=== PATIENT | female | born 1960 | race American Indian/Alaskan Native ===

== ENCOUNTER 2019-01-20 11:57 | Emergency (ER) | payer MEDICARE ==
[2019-01-20 12:07] VITALS: BP 112/50
[2019-01-20] MEDS ORDERED: BOOSTRIX IM ONE (12:07)
--- NOTE | 2019-01-20 12:07 | Emergency Department Report ---
Chief Complaint: Extremity Injury, Upper Stated Complaint: RT HAND CUT/PAIN Time Seen by Provider: 01/20/19 12:05 - HPI History of Present Illness: cc lac hand and hand pain p slamming in car door pmh htn chronic pain 12/13 thyroidectomy rx lisinopril occ etoh no cig no drugs post menopausal needs tdap mse completed MSE screening note: Focused history and physical exam performed. Due to findings the following was ordered: ED Disposition for MSE Condition: Stable
--- NOTE | 2019-01-20 12:51 | Emergency Department Report ---
ED Upper Extremity Inj HPI - General Chief Complaint: Extremity Injury, Upper Stated Complaint: RT HAND CUT/PAIN Time Seen by Provider: 01/20/19 12:05 Source: patient Mode of arrival: Ambulatory Limitations: No Limitations - History of Present Illness Initial Comments: pt slammed hand in car trunk this am small abrasion thumb and 3rd finger needs tdap vss Complaint: Injury to:: right -: Sudden Other Extremity Injury: Hand: Right Other Injuries: none Handedness: right Place: home Improves With: none Worsens With: none Context: direct blow Associated Symptoms: denies other symptoms - Related Data Previous Rx's Medication Instructions Recorded Last Taken Type Naproxen [Naprosyn] 500 mg PO BID PRN #20 tablet 01/20/19 Unknown Rx Allergies Allergy/AdvReac Type Severity Reaction Status Date / Time gabapentin Allergy Unknown Verified 01/20/19 12:05 ED Review of Systems ROS: Stated complaint: RT HAND CUT/PAIN Other details as noted in HPI Comment: All other systems reviewed and negative Constitutional: denies: chills ENT: denies: as per HPI, ear pain Respiratory: denies: cough Cardiovascular: denies: palpitations Endocrine: denies: flushing Gastrointestinal: denies: nausea Musculoskeletal: as per HPI Skin: denies: rash Neurological: denies: headache Psychiatric: denies: anxiety Hematological/Lymphatic: denies: easy bleeding ED Past Medical Hx - Past Medical History Previous Medical History?: Yes Hx Hypertension: Yes Additional medical history: chronic pain - Surgical History Past Surgical History?: Yes Additional Surgical History: hysterectomy, thyriodectomy - Family History Family history: no significant - Social History Smoking Status: Never Smoker Substance Use Type: Alcohol - Medications Home Medications: Home Medications Medication Instructions Recorded Confirmed Last Taken Type Naproxen [Naprosyn] 500 mg PO BID PRN #20 tablet 01/20/19 Unknown Rx ED Physical Exam - General Limitations: No Limitations General appearance: alert - Head Head exam: Present: atraumatic, normocephalic - Eye Eye exam: Present: normal appearance, PERRL - ENT ENT exam: Present: mucous membranes moist - Neck Neck exam: Present: normal inspection, full ROM - Respiratory Respiratory exam: Present: normal lung sounds bilaterally - Cardiovascular Cardiovascular Exam: Present: regular rate - GI/Abdominal GI/Abdominal exam: Present: soft, normal bowel sounds - Rectal Rectal exam: Present: deferred - Extremities Exam Extremities exam: Present: normal inspection, full ROM - Expanded Upper Extremity Exam Right Hand Wrist exam: Present: normal inspection, full ROM, abrasion. Absent: tenderness, swelling, laceration, ecchymosis, deformity, crepidus, dislocation, erythema, amputation, nail avulsion Neuro motor exam: Present: wrist extension intact Neurosensory exam: Present: radial nerve intact, ulnar nerve intact, median nerve intact Vascular: Present: normal capillary refill, radial pulse, brachial pulse, ulnar pulse ED Course Vital Signs 01/20/19 12:06 Temperature 98.5 F Pulse Rate 90 Respiratory 18 Rate Blood Pressure 112/50 O2 Sat by Pulse 95 Oximetry - Reevaluation(s) Reevaluation #1: 01/20/19 12:50 no blood thinners ED Medical Decision Making - Radiology Data Radiology results: report reviewed, image reviewed - Medical Decision Making xray noted tdap given neuro vasc intact wound care provided dc home with dc poc Vital Signs 01/20/19 12:06 Temperature 98.5 F Pulse Rate 90 Respiratory 18 Rate Blood Pressure 112/50 O2 Sat by Pulse 95 Oximetry Critical care attestation.: If time is entered above; I have spent that time in minutes in the direct care of this critically ill patient, excluding procedure time. ED Disposition Clinical Impression: Hand contusion, Hand abrasion Disposition: DC-01 TO HOME OR SELFCARE Is pt being admited?: No Does the pt Need Aspirin: No Condition: Stable Instructions: Contusion in Adults (ED), Abrasion (ED) Additional Instructions: ICE REST ELEVATE OTC TYLENOL FOR PAIN NAPROSYN ORDERED TODAY TAKE WITH FOOD DIET TOLERATED ACTIVITY TOLERATED FOLLOW UP PCP IF PERSISTS Prescriptions: Naproxen [Naprosyn] 500 mg PO BID PRN #20 tablet PRN Reason: Pain Referrals: [facility] [Outside] - 3-5 Days Time of Disposition: 12:58
--- NOTE | 2019-01-20 13:08 | XRay Report ---
PROCEDURE: XR HAND 3+V RT TECHNIQUE: Right hand, 3 views HISTORY: pain hand p slamming in car door COMPARISONS: None available FINDINGS: No acute fracture or dislocation is seen. No focal osseous lesions. IMPRESSION: No acute fracture or dislocation is seen. This document is electronically signed by Claudia Perez MD., January 20 2019 01:06:55 PM ET
== END 2019-01-20 13:18 | disposition home or self-care (01) ==
LOC: ED 11:57
DX: S60.221A Contusion of right hand, initial encounter (principal); S60.311A Abrasion of right thumb, initial encounter; S60.412A Abrasion of right middle finger, initial encounter; W22.8XXA Striking against or struck by other objects, initial encounter; Y93.89 Activity, other specified; Y92.89 Other specified places as the place of occurrence of the external cause; Y99.8 Other external cause status
CPT/HCPCS: 90471; 90715

== ENCOUNTER 2019-09-13 16:29 | Emergency (ER) | payer MEDICARE ==
[2019-09-13 18:11] VITALS: BP 146/77
--- NOTE | 2019-09-13 18:21 | Emergency Department Report ---
ED General Adult HPI - General Chief complaint: Medical Clearance Stated complaint: GENERAL ILLNESS Time Seen by Provider: 09/13/19 18:10 Source: patient Mode of arrival: Ambulatory Limitations: No Limitations - History of Present Illness Initial comments: Patient is a 59-year-old female presents emergency room with complaints of right upper dental pain that began 3 days ago. She states that she was eating something and cracked her right upper tooth. She states it has been a while since she has seen a dentist. Patient denies any fever or facial swelling. She states that she is also presenting to the emergency room with complaints of URI symptoms for a week. She states she has associated cough, clear mucus, chills. She denies any fever, shortness of breath, chest pain, productive cough, leg swelling, any other symptoms. She states her only past medical history of hypertension. She denies any allergies medications. - Related Data Previous Rx's Medication Instructions Recorded Last Taken Type Naproxen [Naprosyn] 500 mg PO BID PRN #20 tablet 01/20/19 Unknown Rx Acetaminophen/Codeine [Tylenol 1 tab PO Q6H PRN #7 tab 09/13/19 Unknown Rx /Codeine # 3 tab] Cetirizine HCl [Zyrtec 10mg tab] 10 mg PO DAILY #14 tablet 09/13/19 Unknown Rx Fluticasone [Flonase] 1 spray NS QDAY #1 bottle 09/13/19 Unknown Rx Ibuprofen [Motrin 600 MG tab] 600 mg PO Q8H PRN #14 tablet 09/13/19 Unknown Rx Penicillin Vk [Veetids TAB] 500 mg PO QID 7 Days #56 tablet 09/13/19 Unknown Rx guaiFENesin ER [Mucinex ER] 600 mg PO Q12H #14 tablet.er 09/13/19 Unknown Rx Allergies Allergy/AdvReac Type Severity Reaction Status Date / Time gabapentin Allergy Unknown Verified 01/20/19 12:05 ED Review of Systems ROS: Stated complaint: GENERAL ILLNESS Other details as noted in HPI Comment: All other systems reviewed and negative ED Past Medical Hx - Past Medical History Previous Medical History?: Yes Hx Hypertension: Yes Additional medical history: chronic pain - Surgical History Past Surgical History?: Yes Additional Surgical History: hysterectomy, thyriodectomy - Social History Smoking Status: Never Smoker Substance Use Type: Alcohol - Medications Home Medications: Home Medications Medication Instructions Recorded Confirmed Last Taken Type Naproxen [Naprosyn] 500 mg PO BID PRN #20 tablet 01/20/19 Unknown Rx Acetaminophen/Codeine [Tylenol 1 tab PO Q6H PRN #7 tab 09/13/19 Unknown Rx /Codeine # 3 tab] Cetirizine HCl [Zyrtec 10mg tab] 10 mg PO DAILY #14 tablet 09/13/19 Unknown Rx Fluticasone [Flonase] 1 spray NS QDAY #1 bottle 09/13/19 Unknown Rx Ibuprofen [Motrin 600 MG tab] 600 mg PO Q8H PRN #14 tablet 09/13/19 Unknown Rx Penicillin Vk [Veetids TAB] 500 mg PO QID 7 Days #56 tablet 09/13/19 Unknown Rx guaiFENesin ER [Mucinex ER] 600 mg PO Q12H #14 tablet.er 09/13/19 Unknown Rx ED Physical Exam - General Limitations: No Limitations General appearance: alert, in no apparent distress - Head Head exam: Present: atraumatic, normocephalic - Eye Eye exam: Present: normal appearance - ENT ENT exam: Present: normal orophraynx, mucous membranes moist, TM's normal bilaterally, normal external ear exam, other (right upper tooth is cracked in half no surrounding edema, erythema, induration, uvula is midline, no uvular edema) - Respiratory Respiratory exam: Present: normal lung sounds bilaterally. Absent: respiratory distress, wheezes, rales, rhonchi, stridor, chest wall tenderness, accessory muscle use, decreased breath sounds, prolonged expiratory - Cardiovascular Cardiovascular Exam: Present: regular rate, normal rhythm, normal heart sounds. Absent: systolic murmur, diastolic murmur, rubs, gallop - Neurological Exam Neurological exam: Present: alert, oriented X3 - Psychiatric Psychiatric exam: Present: normal affect, normal mood - Skin Skin exam: Present: warm, dry, intact ED Course Vital Signs 09/13/19 18:07 Temperature 98.5 F Pulse Rate 86 Respiratory 16 Rate Blood Pressure 146/77 [Left] O2 Sat by Pulse 98 Oximetry ED Medical Decision Making - Medical Decision Making Patient is a 59-year-old female presents emergency room with complaints of right upper dental pain that began 3 days ago. She states that she was eating something and cracked her right upper tooth. She states it has been a while since she has seen a dentist. Patient denies any fever or facial swelling. She states that she is also presenting to the emergency room with complaints of URI symptoms for a week. She states she has associated cough, clear mucus, chills. She denies any fever, shortness of breath, chest pain, productive cough, leg swelling, any other symptoms. She states her only past medical history of hypertension. She denies any allergies medications. VSS. no tachycardia, no fever. on exam: right upper tooth is cracked in half no surrounding edema, erythema, induration, uvula is midline, no uvular edema, lungs are clear bilaterally with no wheezing, rales, rhonchi. She has no clinical signs and symptoms of pneumonia. Patient's examination consistent with viral URI. Patient placed on antibiotics prophylactically for cracked tooth to prevention dental abscess. Discussed supportive care and symptomatic treatment with patient for viral URI. advised pt to please take medication as prescribed. Do not drive or operate heavy machinery while taking pain medication. May use warm saltwater gargles, drink warm tea, eat warm soup broth, get plenty of rest. Increase your fluid intake over the next several days. Follow-up with a dentist and a primary care doctor in the next 2-3 days. Return to the emergency room for any new or worsening symptoms. - Differential Diagnosis URI, PNA, allergies, viral syndrome, sinusitis Critical care attestation.: If time is entered above; I have spent that time in minutes in the direct care of this critically ill patient, excluding procedure time. ED Disposition Clinical Impression: Cracked tooth Upper respiratory infection Qualifiers: URI type: unspecified URI Qualified Code(s): J06.9 - Acute upper respiratory infection, unspecified Disposition: DC-01 TO HOME OR SELFCARE Is pt being admited?: No Does the pt Need Aspirin: No Condition: Stable Instructions: Dental Caries (ED), Upper Respiratory Infection (ED), Toothache (ED) Additional Instructions: Please take medication as prescribed. Do not drive or operate heavy machinery while taking pain medication. May use warm saltwater gargles, drink warm tea, eat warm soup broth, get plenty of rest. Increase your fluid intake over the next several days. Follow-up with a dentist and a primary care doctor in the next 2-3 days. Return to the emergency room for any new or worsening symptoms. Prescriptions: Fluticasone [Flonase] 1 spray NS QDAY #1 bottle Ibuprofen [Motrin 600 MG tab] 600 mg PO Q8H PRN #14 tablet PRN Reason: Pain guaiFENesin ER [Mucinex ER] 600 mg PO Q12H #14 tablet.er Acetaminophen/Codeine [Tylenol /Codeine # 3 tab] 1 tab PO Q6H PRN #7 tab PRN Reason: Pain , Severe (7-10) Penicillin Vk [Veetids TAB] 500 mg PO QID 7 Days #56 tablet Cetirizine HCl [Zyrtec 10mg tab] 10 mg PO DAILY #14 tablet Referrals: your, primary care doctor [Other] - 2-3 Days your, dentist [Other] - 2-3 Days Time of Disposition: 18:21 Print Language: PARAGUAYAN
== END 2019-09-13 19:03 | disposition home or self-care (01) ==
LOC: ED 16:29
DX: K03.81 Cracked tooth (principal); J06.9 Acute upper respiratory infection, unspecified; I10 Essential (primary) hypertension
CPT/HCPCS: 99283

== ENCOUNTER 2019-10-05 10:21 | Emergency (ER) | payer MEDICARE ==
[2019-10-05 10:34] VITALS: BP 148/83
== END 2019-10-05 14:01 | disposition home or self-care (01) ==
LOC: ED 10:21
DX: R05 Cough (principal); K04.7 Periapical abscess without sinus; I10 Essential (primary) hypertension; Z90.710 Acquired absence of both cervix and uterus; Z98.890 Other specified postprocedural states; Z87.891 Personal history of nicotine dependence; Z79.1 Long term (current) use of non-steroidal anti-inflammatories (NSAID); Z79.899 Other long term (current) drug therapy; Z88.8 Allergy status to other drugs, medicaments and biological substances
CPT/HCPCS: 71046; 96372; 99283; J1885

== ENCOUNTER 2019-12-30 07:52 | Emergency (ER) | payer MEDICAID, MEDICARE ==
[2019-12-30 07:58] VITALS: BP 170/86
[2019-12-30] MEDS ORDERED: IBUPROFEN 800 MG TAB PO ONE (10:00)
--- NOTE | 2019-12-30 10:44 | XRay Report ---
RIGHT HUMERUS 2 VIEWS INDICATION / CLINICAL INFORMATION: MAIN: pain s/p fall from work COMPARISON: None available. FINDINGS: BONES / JOINT(S): No acute fracture or subluxation. No significant arthritis. SOFT TISSUES: No significant abnormality. ADDITIONAL FINDINGS: None. Signer Name: Uvaldo Starkey MD Signed: 12/30/2019 10:40 AM Workstation Name: [email or web address]
--- NOTE | 2019-12-30 10:45 | XRay Report ---
LEFT HIP 2 VIEWS INDICATION / CLINICAL INFORMATION: MAIN: pain s/p fall from work COMPARISON: None available. FINDINGS: BONES / JOINT(S): No acute fracture or subluxation. No significant arthritis. SOFT TISSUES: No significant abnormality. ADDITIONAL FINDINGS: None. Signer Name: Uvaldo Starkey MD Signed: 12/30/2019 10:40 AM Workstation Name: [email or web address]
--- NOTE | 2019-12-30 10:46 | XRay Report ---
LUMBAR SPINE 3 VIEWS INDICATION / CLINICAL INFORMATION: MAIN: pain s/p fall from work COMPARISON: None available. FINDINGS: BONES / JOINT(S): No acute fracture or subluxation. No significant arthritis. SOFT TISSUES: No significant abnormality. ADDITIONAL FINDINGS: None. Signer Name: Uvaldo Starkey MD Signed: 12/30/2019 10:42 AM Workstation Name: [id number]
--- NOTE | 2019-12-30 11:20 | Emergency Department Report ---
ED Fall HPI - General Chief Complaint: Fall Stated Complaint: FELL ON BUTT LAST WEEK Time Seen by Provider: 12/30/19 09:50 Source: patient Mode of arrival: Ambulatory - History of Present Illness Initial Comments: This is a 59-year-old female nontoxic, well nourished in appearance, no acute signs of distress presents to the ED with c/o of lower back pain, right arm pain, and left hip pain s/p fall that occurred 1 week ago. Stated had a mechanical trip and fall. Patient denies any radiation of pain. Patient denies other any injuries or trauma. Denies any head trauma. Denies any neck pain. Denies any bladder or bowel instability. Patient denies any urinary symptoms. Denies any fever, chills, nausea, vomiting, headache, stiff neck, chest pain or shortness of breath. Patient denies any numbness or tingling. Patient stated has allergies to gabapentin. PMH includes HTN. MD Complaint: fall -: week(s) (1) Fall Witnessed: no Loss of Consciousness: none Prolonged Down Time?: no Symptoms Prior to Fall: none Severity: mild Severity scale (0 -10): 8 Quality: aching Context: tripped/slipped Associated Symptoms: denies. denies: headache, neck pain, numbness, weakness, chest paint, shortness of breath, abdominal pain, hematuria, unable to walk, lightheaded, vertigo, confusion - Related Data Previous Rx's Medication Instructions Recorded Last Taken Type Naproxen [Naprosyn] 500 mg PO BID PRN #20 tablet 01/20/19 Unknown Rx Acetaminophen/Codeine [Tylenol 1 tab PO Q6H PRN #7 tab 09/13/19 Unknown Rx /Codeine # 3 tab] Cetirizine HCl [Zyrtec 10mg tab] 10 mg PO DAILY #14 tablet 09/13/19 Unknown Rx Fluticasone [Flonase] 1 spray NS QDAY #1 bottle 09/13/19 Unknown Rx Ibuprofen [Motrin 600 MG tab] 600 mg PO Q8H PRN #14 tablet 09/13/19 Unknown Rx Penicillin Vk [Veetids TAB] 500 mg PO QID 7 Days #56 tablet 09/13/19 Unknown Rx guaiFENesin ER [Mucinex ER] 600 mg PO Q12H #14 tablet.er 09/13/19 Unknown Rx Acetaminophen/Codeine [Tylenol 1 tab PO Q8H PRN #6 tab 10/05/19 Unknown Rx /Codeine # 3 tab] Benzonatate 200 mg PO TID PRN #30 capsule 10/05/19 Unknown Rx Clindamycin [Clindamycin CAP] 300 mg PO Q8H 10 Days #30 cap 10/05/19 Unknown Rx Cyclobenzaprine HCl [Flexeril 5 MG 5 mg PO QHS PRN #10 tab 12/30/19 Unknown Rx TAB] Naproxen 500 mg PO Q12H PRN #20 tablet 12/30/19 Unknown Rx Allergies Allergy/AdvReac Type Severity Reaction Status Date / Time gabapentin Allergy Unknown Verified 10/05/19 10:23 ED Review of Systems ROS: Stated complaint: FELL ON BUTT LAST WEEK Other details as noted in HPI Constitutional: denies: chills, fever Eyes: denies: eye pain, eye discharge, vision change ENT: denies: ear pain, throat pain Respiratory: denies: cough, shortness of breath, wheezing Cardiovascular: denies: chest pain, palpitations Endocrine: no symptoms reported Gastrointestinal: denies: abdominal pain, nausea, diarrhea Genitourinary: denies: urgency, dysuria, discharge Musculoskeletal: back pain. denies: joint swelling, arthralgia Skin: denies: rash, lesions Neurological: denies: headache, weakness, paresthesias Psychiatric: denies: anxiety, depression Hematological/Lymphatic: denies: easy bleeding, easy bruising ED Past Medical Hx - Past Medical History Previous Medical History?: Yes Hx Hypertension: Yes Additional medical history: chronic pain - Surgical History Additional Surgical History: hysterectomy, thyroidectomy - Social History Smoking Status: Former Smoker Substance Use Type: None - Medications Home Medications: Home Medications Medication Instructions Recorded Confirmed Last Taken Type Naproxen [Naprosyn] 500 mg PO BID PRN #20 tablet 01/20/19 Unknown Rx Acetaminophen/Codeine [Tylenol 1 tab PO Q6H PRN #7 tab 09/13/19 Unknown Rx /Codeine # 3 tab] Cetirizine HCl [Zyrtec 10mg tab] 10 mg PO DAILY #14 tablet 09/13/19 Unknown Rx Fluticasone [Flonase] 1 spray NS QDAY #1 bottle 09/13/19 Unknown Rx Ibuprofen [Motrin 600 MG tab] 600 mg PO Q8H PRN #14 tablet 09/13/19 Unknown Rx Penicillin Vk [Veetids TAB] 500 mg PO QID 7 Days #56 tablet 09/13/19 Unknown Rx guaiFENesin ER [Mucinex ER] 600 mg PO Q12H #14 tablet.er 09/13/19 Unknown Rx Acetaminophen/Codeine [Tylenol 1 tab PO Q8H PRN #6 tab 10/05/19 Unknown Rx /Codeine # 3 tab] Benzonatate 200 mg PO TID PRN #30 capsule 10/05/19 Unknown Rx Clindamycin [Clindamycin CAP] 300 mg PO Q8H 10 Days #30 cap 10/05/19 Unknown Rx Cyclobenzaprine HCl [Flexeril 5 MG 5 mg PO QHS PRN #10 tab 12/30/19 Unknown Rx TAB] Naproxen 500 mg PO Q12H PRN #20 tablet 12/30/19 Unknown Rx ED Physical Exam - General Limitations: No Limitations General appearance: alert, in no apparent distress - Head Head exam: Present: atraumatic, normocephalic - Eye Eye exam: Present: normal appearance, PERRL, EOMI - Neck Neck exam: Present: normal inspection, full ROM. Absent: tenderness, meningismus, lymphadenopathy - Respiratory Respiratory exam: Present: normal lung sounds bilaterally. Absent: respiratory distress, wheezes, rales, rhonchi, stridor, chest wall tenderness, accessory muscle use, decreased breath sounds, prolonged expiratory - Cardiovascular Cardiovascular Exam: Present: regular rate, normal rhythm, normal heart sounds. Absent: irregular rhythm, systolic murmur, diastolic murmur, rubs, gallop - GI/Abdominal GI/Abdominal exam: Present: soft, normal bowel sounds. Absent: distended, tenderness, guarding, rebound, rigid, diminished bowel sounds - Extremities Exam Extremities exam: Present: normal inspection, full ROM, tenderness, normal capillary refill. Absent: joint swelling - Expanded Upper Extremity Exam Right Shoulder Exam: Present: normal inspection, full ROM. Absent: tenderness, swelling Upper Arm exam: Present: normal inspection, full ROM, tenderness, ecchymosis. Absent: swelling, abrasion, laceration, deformity, crepidus, dislocation, erythema Elbow exam: Present: normal inspection, full ROM. Absent: tenderness, swelling Forearm Wrist exam: Present: normal inspection, full ROM. Absent: tenderness, swelling Hand Wrist exam: Present: normal inspection, full ROM. Absent: tenderness, swelling Vascular: Present: vascular compromise, normal capillary refill - Expanded Lower Extremity Exam Left Hip exam: Present: normal inspection, full ROM, tenderness, external rotation, internal rotation, pelvic stability. Absent: swelling, abrasion, laceration, ecchymosis, deformity, crepidus, dislocation, erythema, shortening Upper Leg exam: Present: normal inspection, full ROM. Absent: tenderness, swelling Knee exam: Present: normal inspection, full ROM. Absent: tenderness, swelling Lower Leg exam: Present: normal inspection, full ROM. Absent: tenderness, swelling Ankle exam: Present: normal inspection, full ROM. Absent: tenderness, swelling Foot/Toe exam: Present: normal inspection, full ROM. Absent: tenderness, swelling Neuro vascular tendon exam: Present: no vascular compromise Gait: Positive: observed and normal - Back Exam Back exam: Present: normal inspection, full ROM, paraspinal tenderness (lumbar paraspinal area). Absent: tenderness, CVA tenderness (R), CVA tenderness (L), muscle spasm, vertebral tenderness, rash noted - Expanded Back Exam Expanded Back exam: Absent: saddle anesthesia Back exam: Negative Straight Leg Raising: Left, Right - Neurological Exam Neurological exam: Present: alert, oriented X3, normal gait - Psychiatric Psychiatric exam: Present: normal affect, normal mood - Skin Skin exam: Present: warm, dry, intact, normal color. Absent: rash ED Course Vital Signs 12/30/19 07:55 Temperature 97.8 F Pulse Rate 103 H Respiratory 18 Rate Blood Pressure 170/86 O2 Sat by Pulse 96 Oximetry - Reevaluation(s) Reevaluation #1: 12/30/19 11:21 Patient is speaking in full sentences with no signs of distress noted. ED Medical Decision Making - Medical Decision Making This is a 59-year-old female that presents with left hip strain, right femur strain, and low back strain. Patient is stable was examined by me. There is no spinal tenderness. There is no cauda equina syndrome during examination. No bladder or bowel instability. Xrays are unremarkable and dictated by the radiologist. Patient received Motrin in the ED which preceded his symptoms has resolved and subsided. Patient is discharged with muscle relaxant and Motrin. Patient was instructed not to operate any machinery while taking muscle relaxant as they cause her drowsiness. Patient was referred to Follow-up with a primary care doctor in 3-5 days or if symptoms worsen and continue return to emergency room as soon as possible. At time of discharge, the patient does not seem toxic or ill in appearance. No acute signs of distress noted. Patient agrees to discharge treatment plan of care. No further questions noted by the patient. This chart is dictated with using [employer] Critical care attestation.: If time is entered above; I have spent that time in minutes in the direct care of this critically ill patient, excluding procedure time. ED Disposition Clinical Impression: Strain of left hip Qualifiers: Encounter type: initial encounter Qualified Code(s): S76.012A - Strain of muscle, fascia and tendon of left hip, initial encounter Strain of right upper arm Qualifiers: Encounter type: initial encounter Qualified Code(s): S46.911A - Strain of unspecified muscle, fascia and tendon at shoulder and upper arm level, right arm, initial encounter Low back strain Qualifiers: Encounter type: initial encounter Qualified Code(s): S39.012A - Strain of muscle, fascia and tendon of lower back, initial encounter Fall Qualifiers: Encounter type: initial encounter Qualified Code(s): W19.XXXA - Unspecified fall, initial encounter Disposition: DC- TO HOME OR SELFCARE Is pt being admited?: No Does the pt Need Aspirin: No Condition: Stable Instructions: Low Back Strain (ED), Cyclobenzaprine (By mouth) Prescriptions: Cyclobenzaprine HCl [Flexeril 5 MG TAB] 5 mg PO QHS PRN #10 tab PRN Reason: Muscle Spasm Naproxen 500 mg PO Q12H PRN #20 tablet PRN Reason: Pain , Severe (7-10) Referrals: PRIMARY MD RACIEL [Primary Care Provider] - 3-5 Days FRANCISCO J DAVE MD [Staff Physician] - 3-5 Days [facility] [Outside] - 3-5 Days Forms: Work/School Release Form(ED)
== END 2019-12-30 11:34 | disposition home or self-care (01) ==
LOC: ED 07:52
DX: S76.012A Strain of muscle, fascia and tendon of left hip, initial encounter (principal); S46.911A Strain of unspecified muscle, fascia and tendon at shoulder and upper arm level, right arm, initial encounter; S39.012A Strain of muscle, fascia and tendon of lower back, initial encounter; Z79.899 Other long term (current) drug therapy; Z88.8 Allergy status to other drugs, medicaments and biological substances; Z90.710 Acquired absence of both cervix and uterus; Z87.891 Personal history of nicotine dependence; W19.XXXA Unspecified fall, initial encounter; Y93.89 Activity, other specified; Y92.89 Other specified places as the place of occurrence of the external cause; Y99.8 Other external cause status
CPT/HCPCS: 72100; 99283

== ENCOUNTER 2020-06-12 07:36 | Emergency (ER) | payer MEDICARE ==
[2020-06-12 07:55] VITALS: BP 155/82
[2020-06-12] MEDS ORDERED: ONDANSETRON 4 MG/2 ML INJ IV STA (09:24)
[2020-06-12] MEDS ORDERED: SODIUM CHLORIDE 0.9% 1000 ML 1,000 ML IV ONE (09:24)
[2020-06-12] MEDS ORDERED: KETOROLAC 30 MG/1 ML INJ IV STA (09:24)
[2020-06-12 10:26] LABS: Hemoglobin 13.3 gm/dl (10.1-14.3); Mean Corpuscular HGB Conc 33 % (30-34); Mean Corpuscular Volume 92 fl (79-97); Platelet Count 255 K/mm3 (140-440); Red Blood Count 4.35 M/mm3 (3.65-5.03); Red Cell Distribution Width 15.1 % (13.2-15.2)
[2020-06-12 10:37] LABS: Bilirubin,Urine NEG (Negative); Blood,Urine NEG (Negative); Color,Urine Straw (Yellow); Protein,Urine <15 mg/dL mg/dL (Negative); Urobilinogen,Urine < 2.0 mg/dL (<2.0)
[2020-06-12 10:46] LABS: Alanine Aminotransferase 16 units/L (7-56); Albumin 4.5 g/dL (3.9-5); Blood Urea Nitrogen 11 mg/dL (7-17); Calcium 9.6 mg/dL (8.4-10.2); Hemolysis Index 47
[2020-06-12 10:46] LABS: WBC,Urine < 1.0 /HPF (0.0-6.0)
[2020-06-12 11:00] LABS: BUN/Creatinine Ratio 16
--- NOTE | 2020-06-12 11:47 | Emergency Department Report ---
ED General Adult HPI - General Chief complaint: Pain General Stated complaint: LOWER BACK PAIN/ABD PAIN Time Seen by Provider: 06/12/20 09:04 Source: patient Mode of arrival: Ambulatory Limitations: No Limitations - History of Present Illness Initial comments: 6 . 1-year-old F Nigerian female resents emerged department complaining of chronic history of left lower back pain that radiates to her right hip and left lower abdomen which is been on the the care also orthopedic surgery and vascular surgery as well as her her [employer] to find a cause was they have been yet unsuccessful states she has had ultrasounds and CAT scans reviewed no answers to the issue and presents emergency department today complaining of another pain exacerbation. Reports no fever, chills, sweats no hemoptysis no hematemesis no vaginal vaginalbleeding no diarrhea no constipation no trauma. States that various medications help her pain overall and pain appears to be worse at this point with palpation and certain movements. She reports no loss of bowel bladder no saddle paresthesia Radiation: non-radiation Severity scale (0 -10): 2 Consistency: constant Improves with: none Worsens with: none Associated Symptoms: denies: confusion, chest pain, cough, diaphoresis, loss of appetite, nausea/vomiting, shortness of breath, syncope - Related Data Previous Rx's Medication Instructions Recorded Last Taken Type Naproxen [Naprosyn] 500 mg PO BID PRN #20 tablet 01/20/19 Unknown Rx Acetaminophen/Codeine [Tylenol 1 tab PO Q6H PRN #7 tab 09/13/19 Unknown Rx /Codeine # 3 tab] Cetirizine HCl [Zyrtec 10mg tab] 10 mg PO DAILY #14 tablet 09/13/19 Unknown Rx Fluticasone [Flonase] 1 spray NS QDAY #1 bottle 09/13/19 Unknown Rx Ibuprofen [Motrin 600 MG tab] 600 mg PO Q8H PRN #14 tablet 09/13/19 Unknown Rx Penicillin Vk [Veetids TAB] 500 mg PO QID 7 Days #56 tablet 09/13/19 Unknown Rx guaiFENesin ER [Mucinex ER] 600 mg PO Q12H #14 tablet.er 09/13/19 Unknown Rx Acetaminophen/Codeine [Tylenol 1 tab PO Q8H PRN #6 tab 10/05/19 Unknown Rx /Codeine # 3 tab] Benzonatate 200 mg PO TID PRN #30 capsule 10/05/19 Unknown Rx Clindamycin [Clindamycin CAP] 300 mg PO Q8H 10 Days #30 cap 10/05/19 Unknown Rx Cyclobenzaprine HCl [Flexeril 5 MG 5 mg PO QHS PRN #10 tab 12/30/19 Unknown Rx TAB] Naproxen 500 mg PO Q12H PRN #20 tablet 12/30/19 Unknown Rx Ketorolac [Toradol] 10 mg PO Q6H PRN #10 tablet 06/12/20 Unknown Rx methOCARBAMOL [Robaxin TAB] 750 mg PO Q8H #14 tablet 06/12/20 Unknown Rx Allergies Allergy/AdvReac Type Severity Reaction Status Date / Time gabapentin Allergy Unknown Verified 10/05/19 10:23 ED Review of Systems ROS: Stated complaint: LOWER BACK PAIN/ABD PAIN Other details as noted in HPI Comment: All other systems reviewed and negative ED Past Medical Hx - Past Medical History Previous Medical History?: Yes Hx Hypertension: Yes Additional medical history: chronic pain - Surgical History Past Surgical History?: Yes Additional Surgical History: hysterectomy, thyroidectomy - Social History Smoking Status: Never Smoker - Medications Home Medications: Home Medications Medication Instructions Recorded Confirmed Last Taken Type Naproxen [Naprosyn] 500 mg PO BID PRN #20 tablet 01/20/19 Unknown Rx Acetaminophen/Codeine [Tylenol 1 tab PO Q6H PRN #7 tab 09/13/19 Unknown Rx /Codeine # 3 tab] Cetirizine HCl [Zyrtec 10mg tab] 10 mg PO DAILY #14 tablet 09/13/19 Unknown Rx Fluticasone [Flonase] 1 spray NS QDAY #1 bottle 09/13/19 Unknown Rx Ibuprofen [Motrin 600 MG tab] 600 mg PO Q8H PRN #14 tablet 09/13/19 Unknown Rx Penicillin Vk [Veetids TAB] 500 mg PO QID 7 Days #56 tablet 09/13/19 Unknown Rx guaiFENesin ER [Mucinex ER] 600 mg PO Q12H #14 tablet.er 09/13/19 Unknown Rx Acetaminophen/Codeine [Tylenol 1 tab PO Q8H PRN #6 tab 10/05/19 Unknown Rx /Codeine # 3 tab] Benzonatate 200 mg PO TID PRN #30 capsule 10/05/19 Unknown Rx Clindamycin [Clindamycin CAP] 300 mg PO Q8H 10 Days #30 cap 10/05/19 Unknown Rx Cyclobenzaprine HCl [Flexeril 5 MG 5 mg PO QHS PRN #10 tab 12/30/19 Unknown Rx TAB] Naproxen 500 mg PO Q12H PRN #20 tablet 12/30/19 Unknown Rx Ketorolac [Toradol] 10 mg PO Q6H PRN #10 tablet 06/12/20 Unknown Rx methOCARBAMOL [Robaxin TAB] 750 mg PO Q8H #14 tablet 06/12/20 Unknown Rx ED Physical Exam - General Limitations: No Limitations General appearance: alert, in no apparent distress - Head Head exam: Present: atraumatic, normocephalic - Eye Eye exam: Present: normal appearance, PERRL, EOMI Pupils: Present: normal accommodation - ENT ENT exam: Present: mucous membranes moist - Neck Neck exam: Present: normal inspection - Respiratory Respiratory exam: Present: normal lung sounds bilaterally. Absent: respiratory distress - Cardiovascular Cardiovascular Exam: Present: regular rate, normal rhythm. Absent: systolic mur mur, diastolic murmur, rubs, gallop - GI/Abdominal GI/Abdominal exam: Present: soft, normal bowel sounds - Extremities Exam Extremities exam: Present: normal inspection, normal capillary refill - Back Exam Back exam: Present: normal inspection, tenderness, paraspinal tenderness. Ab sent: CVA tenderness (R), CVA tenderness (L) - Neurological Exam Neurological exam: Present: alert, oriented X3, CN II-XII intact, normal gait, motor sensory deficit - Psychiatric Psychiatric exam: Present: normal affect, normal mood - Skin Skin exam: Present: warm, dry, intact, normal color. Absent: rash ED Course Vital Signs 06/12/20 07:51 Temperature 99.2 F Pulse Rate 83 Respiratory 20 Rate Blood Pressure 155/82 O2 Sat by Pulse 99 Oximetry ED Medical Decision Making - Lab Data Result diagrams: 06/12/20 09:48 06/12/20 09:48 - Medical Decision Making Pt presents the emergency department complaining of back pain most consistent with back Pain Most Consistent with musculoskeletal origin or abdominal pelvic origin. Differential Diagnosis Includes Lumbar Go Versus Musculoskeletal Spasm, Strain Versus Sciatica. No Back we exacerbated and worsened here couple days ago for acute Red Flags on History or Physical. Presentation Not Consistent with Malignancy, Fracture, Cauda Equina, Abdominal Aortic Aneurysm, Viscus Perforation, Pulmonary Embolism, Renal Colic, Pyelonephritis. Patient reports no B symptoms, trauma trauma, incontinence, saddle anesthesia, distal weakness, urinary symptoms and is a febrile. The patient is oriented to person, place, and time, has the capacity to make decisions regarding the medical care offered. The patient speaks coherently and exhibits no evidence of having an altered level of consciousness or alcohol or drug intoxication to a point that would impair judgment. They respond knowingly to questions about recommended treatment and alternate treatments including no further testing or treatment; participate in diagnostic and treatment decisions by means of rational thought processes; and understand the items of minimum basic medical treatment information with respect to that treatment (the nature and seriousness of the illness, the nature of the treatment, the probable degree and duration of any benefits and risks of any medical intervention that is being recommended, and the consequences of lack of treatment, and the nature, risks, and benefits of any reasonable alternatives). I have reviewed the relevant issues with the patient. They are aware of the suspected diagnosis suggested by screening exam, [_], based upon the initiated medical screening exam. The patient acknowledges understanding of the reasons for recommendations regarding medical treatment, medical testing, and further monitoring and observation. The recommended medical care being refused has been discussed with the patient and is [recommend repeat imaging of her abdomen. She had a CT scan of her abdomen in April 24 which yielded no pathology and MRI of the lumbar spine 06/07/2018_pain worsened a couple days ago for acute on chronic exacerbation and further imaging was recommended]. The risks of refusing recommended care that were disclosed and acknowledged by the patient are loss of current lifestyle, permanent mental impairment, and . The patient understands the relevant information of the nature of their medical condition, as well as the risks, benefits, and treatment alternatives (including non-treatment), consequences of refusing care, and can competently communicate a rational explanation about their choice of care options. [Discharge instructions were provided to the patient.] The patient understands they are welcome to return to the hospital at any time to receive the recommended care or any other care at any time, regardless of their ability to pay for such care. Critical care attestation.: If time is entered above; I have spent that time in minutes in the direct care of this critically ill patient, excluding procedure time. ED Disposition Clinical Impression: Chronic pain Disposition: DC-07 LEFT AGAINST MED ADVICE Is pt being admited?: No Does the pt Need Aspirin: No Condition: Stable Instructions: Chronic Pain (ED), Chronic Pelvic Pain in Women (ED), Chronic Back Pain (ED) Additional Instructions: Please follow-up with orthopedic/vascular/primary care provider for further evaluation and treatment options regarding your chronic back/abdominal pain Prescriptions: methOCARBAMOL [Robaxin TAB] 750 mg PO Q8H #14 tablet Ketorolac [Toradol] 10 mg PO Q6H PRN #10 tablet PRN Reason: Pain
== END 2020-06-12 12:20 | disposition left against medical advice (07) ==
LOC: ED 07:36
DX: G89.29 Other chronic pain (principal); M54.5 Low back pain; M25.551 Pain in right hip; R10.32 Left lower quadrant pain; I10 Essential (primary) hypertension; Z90.710 Acquired absence of both cervix and uterus; Z90.89 Acquired absence of other organs; Z79.1 Long term (current) use of non-steroidal anti-inflammatories (NSAID); Z79.2 Long term (current) use of antibiotics; Z79.899 Other long term (current) drug therapy; Z88.8 Allergy status to other drugs, medicaments and biological substances
CPT/HCPCS: 36415; 80053; 81001; 85027; 96361; 96374; 96375; 99283; J1885; J2405; J7030

== ENCOUNTER 2021-10-21 05:05 | Emergency (ER) | payer SELFPAY | END 2021-10-21 11:54 | disposition left against medical advice (07) | LOC: ED 05:05 | DX: M79.672 Pain in left foot (principal); Z53.21 Procedure and treatment not carried out due to patient leaving prior to being seen by health care provider ==

== ENCOUNTER 2022-05-19 11:08 | Emergency (ER) | payer MEDICARE ==
--- NOTE | 2022-05-19 13:09 | XRay Report ---
CHEST 2 VIEWS INDICATION / CLINICAL INFORMATION: sob. COMPARISON: 10/05/2019 chest FINDINGS: SUPPORT DEVICES: None. HEART / MEDIASTINUM: No significant abnormality. LUNGS / PLEURA: Minimal left basilar scarring or atelectasis. The lungs are otherwise clear without e vidence for acute pneumonia, pulmonary edema or pleural effusion. No pneumothorax. ADDITIONAL FINDINGS: None IMPRESSION: 1. Minimal left basilar scarring or subsegmental atelectasis. No other acute chest process. Signer Name: Francisco J Bynum MD Signed: 05/19/2022 1:05 PM Workstation Name: [email or web address]
--- NOTE | 2022-05-19 13:57 | Emergency Department Report ---
Minor Respiratory - HPI Duration: 1 Day Pain Location: Throat, Nose Severity: mild Minor Respiratory: Yes Rhinorrhea, Yes Sore Throat, Yes Able to Tolerate Fluids, Yes Cough, No Ear Pain, No Sick Contacts, No Hemoptysis, No Chest Pain, No Shortness of Breath, No Fever Other History: 62-year-old -Maur[place] female presents to the emergency room with cough, chills, shortness of breath, nasal congestion, diarrhea, n ausea, and myalgia for 1 day. Patient states she contacted her primary care Dr. Jeong with suggestion of possible COVID related symptoms and unable to schedule an appointment. Patient states PCP instructed her to come to the emergency room for further evaluation. Patient denies taking any medication [id number]. States she feels nauseous but has not vomited at this time. Reports diarrhea is loose. Denies fever, abdominal pain, chest pain, or palpitations. <JANINE KERR AUSTIN - Last Filed: 05/19/22 13:53> <RODO PANTOJA - Last Filed: 05/20/22 16:17> - [facility] Chief Complaint: Upper Respiratory Infection Stated Complaint: COVID SYMPTOMS Time Seen by Provider: 05/19/22 12:19 ED Review of Systems ROS: Stated complaint: COVID SYMPTOMS Other details as noted in HPI Constitutional: denies: chills, fever ENT: throat pain, congestion Respiratory: cough, SOB with exertion. denies: shortness of breath, wheezing Cardiovascular: denies: chest pain, palpitations Gastrointestinal: nausea, diarrhea. denies: vomiting Musculoskeletal: denies: back pain, joint swelling, arthralgia Skin: denies: rash, lesions Neurological: denies: headache, weakness, paresthesias <KERRJANINE - Last Filed: 05/19/22 13:53> ROS: Stated complaint: COVID SYMPTOMS Other details as noted in HPI <RODO PANTOJA - Last Filed: 05/20/22 16:17> ED Past Medical Hx - Past Medical History Hx Hypertension: Yes Additional medical history: chronic pain - Surgical History Additional Surgical History: hysterectomy, thyroidectomy - Social History Smoking Status: Never Smoker <JANINE KERR - Last Filed: 05/19/22 13:53> <RODO PANTOJA - Last Filed: 05/20/22 16:17> - Medications Home Medications: Home Medications Medication Instructions Recorded Confirmed Last Taken Type Naproxen [Naprosyn] 500 mg PO BID PRN #20 tablet 01/20/19 Unknown Rx Acetaminophen/Codeine [Tylenol 1 tab PO Q6H PRN #7 tab 09/13/19 Unknown Rx /Codeine # 3 tab] Cetirizine HCl [Zyrtec 10mg tab] 10 mg PO DAILY #14 tablet 09/13/19 Unknown Rx Ibuprofen [Motrin 600 MG tab] 600 mg PO Q8H PRN #14 tablet 09/13/19 Unknown Rx Penicillin Vk [Veetids TAB] 500 mg PO QID 7 Days #56 tablet 09/13/19 Unknown Rx guaiFENesin ER [Mucinex ER] 600 mg PO Q12H #14 tablet.er 09/13/19 Unknown Rx Acetaminophen/Codeine [Tylenol 1 tab PO Q8H PRN #6 tab 10/05/19 Unknown Rx /Codeine # 3 tab] Benzonatate 200 mg PO TID PRN #30 capsule 10/05/19 Unknown Rx Clindamycin [Clindamycin CAP] 300 mg PO Q8H 10 Days #30 cap 10/05/19 Unknown Rx Cyclobenzaprine HCl [Flexeril 5 MG 5 mg PO QHS PRN #10 tab 12/30/19 Unknown Rx TAB] Naproxen 500 mg PO Q12H PRN #20 tablet 12/30/19 Unknown Rx Ketorolac [Toradol] 10 mg PO Q6H PRN #10 tablet 06/12/20 Unknown Rx methOCARBAMOL [Robaxin TAB] 750 mg PO Q8H #14 tablet 06/12/20 Unknown Rx Benzonatate 200 mg PO TID PRN #20 cap 05/19/22 Unknown Rx Fluticasone [Flonase] 1 spray NS QDAY #1 bottle 05/19/22 Unknown Rx Loperamide HCl [Imodium A-D] 2 mg PO DAILY #10 cap 05/19/22 Unknown Rx Ondansetron [Zofran Odt] 4 mg PO Q8HR PRN #12 tab.rapdis 05/19/22 Unknown Rx Minor Respiratory Exam - Exam General: Vital signs noted. No distress. Alert and acting appropriately. HEENT: Yes Pharyngeal Erythema (Uvula midline), Yes Moist Mucous Membranes, Yes Rhinorrhea, No Pharyngeal Exudates, No Conjuctival Injection, No Frontal Tenderness, No Maxillary Tenderness Ear: Neither TM Bulge, Neither TM Erythema, Neither EAC Pain, Neither EAC Discharge Neck: Yes Supple, No Adenopathy Lungs: Yes Good Air Exchange, No Wheezes, No Ronchi, No Stridor, No Cough, No Labored Respirations, No Retractions, No Use of Accessory Muscles, No Other Abnormal Lung Sounds Heart: Yes Regular, No Murmur Abdomen: Yes Normal Bowel Sounds, No Tenderness, No Peritoneal Signs Skin: No Rash, No Edema Neurologic: Alert and oriented, no deficits. Musculoskeletal: Unremarkable. <KERRJNAINE JULIET - Last Filed: 05/19/22 13:53> - Exam General: Vital signs noted. No distress. Alert and acting appropriately. Neurologic: Alert and oriented, no deficits. Musculoskeletal: Unremarkable. <RODO PANTOJA - Last Filed: 05/20/22 16:17> ED Course Vital Signs 05/19/22 11:55 Temperature 98.3 F Pulse Rate 69 Respiratory 20 Rate Blood Pressure 133/84 [Left] O2 Sat by Pulse 97 Oximetry <KERRJANINE JULIET - Last Filed: 05/19/22 13:53> Vital Signs 05/19/22 05/19/22 11:55 14:21 Temperature 98.3 F 98.8 F Pulse Rate 69 78 Respiratory 20 20 Rate Blood Pressure 133/84 128/88 [Left] O2 Sat by Pulse 97 99 Oximetry <DEISYPEDRO LUISRODO - Last Filed: 05/20/22 16:17> ED Medical Decision Making - Medical Decision Making Patient examined by me and stable. No distress noted. Vitals normal. Patient is otherwise healthy patient with viral upper respiratory symptoms. She denies chest pain, weakness, headache, or fever. 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 There is low suspicion of influenza, pneumonia, strep throat, or sinusitis. COVID-19 cannot be ruled out at this time. Labs and imaging are deferred at this time. There are no indications for antibiotics at this time. Will start supportive medication such as cough suppressant and inhaler. Instructed to continue [id number] cold and flu medications, increase fluid intake, and wash hands frequently. Discharged home stable with strict return instructions. Follow up with Primary Care Provider in 2-3 days. Return to work tomorrow. <JANINE KERR - Last Filed: 05/19/22 13:53> - Medical Decision Making Patient was managed independently by the mid level below , I was available for consult but i wasn't directly involved in the care of this patient <RODO PANTOJA - Last Filed: 05/20/22 16:17> Critical care attestation.: If time is entered above; I have spent that time in minutes in the direct care of this critically ill patient, excluding procedure time. <JANINE KERR - Last Filed: 05/19/22 13:53> Critical care attestation.: If time is entered above; I have spent that time in minutes in the direct care of this critically ill patient, excluding procedure time. <RODO PANTOJA - Last Filed: 05/20/22 16:17> ED Disposition Is pt being admited?: No Time of Disposition: 14:04 <JANINE KERR - Last Filed: 05/19/22 13:53> Is pt being admited?: No Does the pt Need Aspirin: No <RODO PANTOJA - Last Filed: 05/20/22 16:17> Clinical Impression: Viral syndrome, SOB (shortness of breath) on exertion, Nausea alone Cough Qualifiers: Cough type: acute Qualified Code(s): R05.1 - Acute cough Disposition: 01 HOME / SELF CARE / HOMELESS Condition: Stable Instructions: Viral Illness, Adult Prescriptions: Benzonatate 200 mg PO TID PRN #20 cap PRN Reason: Cough Fluticasone [Flonase] 1 spray NS QDAY #1 bottle Loperamide HCl [Imodium A-D] 2 mg PO DAILY #10 cap Ondansetron [Zofran Odt] 4 mg PO Q8HR PRN #12 tab.rapdis PRN Reason: Nausea Referrals: FRANCISCO J DAVE MD [Primary Care Provider] - 3-5 Days Forms: Work/School Release Form(ED)
[2022-05-19 14:23] VITALS: BP 128/88
== END 2022-05-19 14:24 | disposition home or self-care (01) ==
LOC: ED 11:08
DX: B34.9 Viral infection, unspecified (principal); R05.9 Cough, unspecified; R09.89 Other specified symptoms and signs involving the circulatory and respiratory systems; R06.02 Shortness of breath; I10 Essential (primary) hypertension; G89.29 Other chronic pain; Z90.710 Acquired absence of both cervix and uterus; Z90.89 Acquired absence of other organs; Z79.899 Other long term (current) drug therapy; Z88.8 Allergy status to other drugs, medicaments and biological substances
CPT/HCPCS: 71046; 99283